=== PATIENT | male | born 1990 | race Caucasian/White ===

== ENCOUNTER → 2019-10-27 | Outpatient (CLI) | payer BC ==
[~2019-10-27] MED LIST: BACTRIM DS 8001 TA1 PO; CEPHALEXIN500 M1 PO; CLARITIN10 MG PO; CLINDAMYCIN150 MG PO; EPI EZ PEN1 MG/ML IM; HYDROCODONE BIT1 T11 PO; MEDROL DOSEPAK4 MG PO; NAPROSYN500 MG PO; NORCO 5-325 TA1 EACH PO; TOBRADEX 0.1%-0.5 ML OPH
[2019-10-27 11:14] LABS: BASO # 0.1 10*3/uL (0.0-0.1); BASO % 0.5 % (0.0-1.0); EOS # 0.2 10*3/uL (0.0-0.4); EOS % 2.1 % (1.0-4.0); HEMATOCRIT 43.9 % (42.0-52.0); HEMOGLOBIN 15.1 g/dl (14.0-18.0); LYMPH # 2.7 10*3/uL (1.3-4.4); LYMPH % 24.5 % (27.0-41.0); MEAN CELL VOLUME 95.4 fl (80.0-94.0); MEAN CORPUSCULAR HGB 32.8 pg (27.0-31.0); MEAN CORPUSCULAR HGB CONC 34.4 g/dl (33.0-37.0); MEAN PLATELET VOLUME 9.6 fl (9.6-12.3); NEUT % 63.6 % (47.0-73.0); PLATELET COUNT AUTOMATED 297 10*3/uL (130-400); RED CELL DISTRI WIDTH 12.6 % (0-14.5); RETICULOCYTE % 1.53 % (0.50-2.50); WHITE BLOOD COUNT 11.1 10*3/uL (4.8-10.8)
[2019-10-27 11:18] LABS: BILIRUBIN NEGATIVE (NEGATIVE); BLOOD NEGATIVE (NEGATIVE); CLARITY SL CLOUDY (CLEAR); COLOR YELLOW (YELLOW); GLUCOSE NEGATIVE (NEGATIVE); KETONE NEGATIVE (NEGATIVE)
[2019-10-27 11:19] LABS: LEUKO ESTERASE NEGATIVE (NEGATIVE); NITRITE NEGATIVE (NEGATIVE); UROBILINOGEN 0.2 E.U./dl (0.2-1.0)
[2019-10-27 11:24] LABS: BACTERIA TRACE; EPITHELIAL CELLS 0-2; MUCOUS 1+; WBC 0-2 wbc/hpf (0-5)
[2019-10-27 11:38] LABS: ALBUMIN 3.9 gm/dl (3.1-4.5); ALKALINE PHOSPHATASE 79 U/L (45-117); BUN 14 mg/dl (7-24); CHLORIDE 108 mmol/L (98-107); CHOLESTEROL 164 mg/dL (<200); CREATININE 0.78 mg/dL (0.70-1.30); GAMMA GLUTAMYL TRANSPEPTIDASE 28 U/L (15-85); HDL CHOLESTEROL 36 mg/dl (40-60); IRON 51 ug/dL (65-175); LDL CHOLESTEROL 91 mg/dL (9-159); POTASSIUM 3.9 mmol/L (3.5-5.1); SGOT/AST 14 IU/L (3-35); SGPT/ALT 39 U/L (12-78); SODIUM 140 mmol/L (136-145); TOTAL IRON BINDING CAPACITY 289 ug/dl (250-450); TRIGLYCERIDES 184 mg/dl (<150); VLDL CHOLESTEROL 37 mg/dL (6-40)
[2019-10-27 11:44] LABS: THYROID STIM HORMONE (HS) 0.794 uIU/ml (0.358-4.75)
[2019-10-27 12:19] LABS: VITAMIN D, 25-HYDROXY 20.9 ng/mL (30-100)
[2019-10-27 12:20] LABS: FERRITIN 219.3 ng/mL (22.0-322.0)
== END | disposition home or self-care (01) ==
LOC: LAB 10:26
PROVIDERS: Family Medicine
DX: E55.9 Vitamin D deficiency, unspecified (principal); R79.89 Other specified abnormal findings of blood chemistry; R53.83 Other fatigue

== ENCOUNTER → 2019-11-05 | Day surgery (SDC) | payer BC ==
[2019-11-05] VITALS (7 sets, daily range): BP systolic 105–122; BP diastolic 57–81
[~2019-11-05] VITALS: Ht 170.1 cm; Wt 104.3 kg
== END | disposition home or self-care (01) ==
LOC: SDC 11-04 08:45
DX: L72.3 Sebaceous cyst (principal)

== ENCOUNTER → 2021-06-10 | Outpatient (CLI) | payer BC ==
[2021-06-10 09:27] LABS: CHOLESTEROL 172 mg/dL (<200); LDL CHOLESTEROL 107 mg/dL (9-159); TRIGLYCERIDES 130 mg/dl (<150)
== END | disposition home or self-care (01) ==
LOC: LAB 08:28
PROVIDERS: ATTEND Family Medicine
DX: R53.83 Other fatigue (principal); R79.89 Other specified abnormal findings of blood chemistry; E78.5 Hyperlipidemia, unspecified

== ENCOUNTER → 2022-05-25 | Outpatient (CLI) | payer BC ==
[2022-05-25 09:57] LABS: BASO % 0.6 % (0.0-1.0); EOS # 0.2 10*3/uL (0.0-0.4); EOS % 2.9 % (1.0-4.0); HEMATOCRIT 44.1 % (42.0-52.0); LYMPH % 27.8 % (27.0-41.0); MEAN CELL VOLUME 93.8 fl (80.0-94.0); MEAN CORPUSCULAR HGB 32.1 pg (27.0-31.0); MEAN CORPUSCULAR HGB CONC 34.2 g/dl (33.0-37.0); MEAN PLATELET VOLUME 8.9 fl (9.6-12.3); MONO # 0.6 10*3/uL (0.1-1.0); NEUT # 4.2 10*3/uL (2.3-7.9); NEUT % 59.6 % (47.0-73.0); PLATELET COUNT AUTOMATED 272 10*3/uL (130-400); RED CELL DISTRI WIDTH 12.6 % (0-14.5); RETICULOCYTE % 1.29 % (0.50-2.50)
[2022-05-25 09:58] LABS: BILIRUBIN Negative (Negative); BLOOD Negative (Negative); CLARITY Clear (Clear); COLOR Yellow (Yellow); GLUCOSE Negative (Negative); KETONE Negative (Negative); LEUKO ESTERASE Negative (Negative); NITRITE Negative (Negative)
[2022-05-25 10:08] LABS: BACTERIA TRACE; EPITHELIAL CELLS 0-2; RBC 0-2 rbc/hpf (0-2); WBC 0-2 wbc/hpf (0-5)
[2022-05-25 10:14] LABS: ALKALINE PHOSPHATASE 72 U/L (45-117); BUN 16 mg/dl (7-24); CHLORIDE 111 mmol/L (98-107); CHOLESTEROL 156 mg/dL (<200); CREATININE 0.74 mg/dL (0.70-1.30); GAMMA GLUTAMYL TRANSPEPTIDASE 29 U/L (15-85); IRON 89 ug/dL (65-175); LDL CHOLESTEROL 96 mg/dL (9-159); POTASSIUM 4.2 mmol/L (3.5-5.1); SGOT/AST 16 IU/L (3-35); SGPT/ALT 30 U/L (12-78); SODIUM 140 mmol/L (136-145); TOTAL PROTEIN 7.8 gm/dL (6.4-8.2); TRIGLYCERIDES 99 mg/dl (<150)
[2022-05-25 10:20] LABS: THYROID STIM HORMONE (HS) 0.339 uIU/ml (0.358-4.75)
[2022-05-25 10:27] LABS: FERRITIN 118.2 ng/mL (22.0-322.0)
== END | disposition home or self-care (01) ==
LOC: LAB 09:33
PROVIDERS: ATTEND Family Medicine
DX: R79.89 Other specified abnormal findings of blood chemistry (principal); R53.83 Other fatigue; E78.5 Hyperlipidemia, unspecified; R74.8 Abnormal levels of other serum enzymes; E55.9 Vitamin D deficiency, unspecified

== ENCOUNTER → 2022-10-04 | Outpatient (CLI) | payer BC | END | disposition home or self-care (01) | LOC: CT 03:25 | PROVIDERS: ATTEND Family Medicine | DX: R07.9 Chest pain, unspecified (principal); R06.02 Shortness of breath ==

== ENCOUNTER → 2023-04-02 | Outpatient (CLI) | payer BC | END | disposition home or self-care (01) | LOC: LAB 15:46 | PROVIDERS: ATTEND Family Medicine | DX: R79.89 Other specified abnormal findings of blood chemistry (principal); R53.83 Other fatigue ==

== ENCOUNTER 2023-04-15 16:55 | Emergency (ER) | payer BC ==
[~2023-04-15] VITALS: Ht 167.6 cm; Wt 99.8 kg
[2023-04-15] MEDS ORDERED: EPIPEN 2-P0.3 MG/0.3 IJ (18:34)
[2023-04-15] MEDS ORDERED: PREDNISONE50 MG PO (18:34)
== END 2023-04-15 18:44 | disposition home or self-care (01) ==
LOC: ED 16:55
DX: T63.441A Toxic effect of venom of bees, accidental (unintentional), initial encounter (principal); Z98.890 Other specified postprocedural states; Y92.89 Other specified places as the place of occurrence of the external cause

== ENCOUNTER → 2023-05-21 | Outpatient (CLI) | payer BC ==
[~2023-05-21] MED LIST changes: +EPIPEN 2-P0.3 MG/0.3 IJ; +PREDNISONE50 MG PO
[2023-05-21 07:43] LABS: BASO # 0.1 10*3/uL (0.0-0.1); BASO % 0.9 % (0.0-1.0); EOS # 0.3 10*3/uL (0.0-0.4); EOS % 3.3 % (1.0-4.0); HEMATOCRIT 45.4 % (42.0-52.0); LYMPH # 3.4 10*3/uL (1.3-4.4); MEAN CELL VOLUME 92.1 fl (80.0-94.0); MEAN CORPUSCULAR HGB 32.7 pg (27.0-31.0); MEAN CORPUSCULAR HGB CONC 35.5 g/dl (33.0-37.0); MEAN PLATELET VOLUME 9.2 fl (9.6-12.3); MONO # 0.7 10*3/uL (0.1-1.0); MONO % 8.7 % (3.0-9.0); NEUT % 46.9 % (47.0-73.0); PLATELET COUNT AUTOMATED 310 10*3/uL (130-400); RED BLOOD COUNT 4.93 10*6/uL (4.50-5.90); RED CELL DISTRI WIDTH 12.5 % (0-14.5); WHITE BLOOD COUNT 8.5 10*3/uL (4.8-10.8)
[2023-05-21 08:06] LABS: ALKALINE PHOSPHATASE 81 U/L (46-116); BUN 13 mg/dl (9-23); CHLORIDE 108 mmol/L (98-107); SGPT/ALT 27 U/L (10-49)
== END | disposition home or self-care (01) ==
LOC: LAB 07:14
PROVIDERS: ATTEND Nurse Practitioner Family
DX: E29.1 Testicular hypofunction (principal)

== ENCOUNTER → 2023-11-07 | Outpatient (CLI) | payer BC ==
[2023-11-14 20:07] LABS: TESTOSTERONE FREE, (DIRECT) 6.4 pg/mL (8.7-25.1)
== END | disposition home or self-care (01) ==
LOC: LAB 07:11
PROVIDERS: ATTEND Urology
DX: N52.9 Male erectile dysfunction, unspecified (principal)

== ENCOUNTER 2024-04-13 19:09 | Emergency (ER) | payer BC ==
[~2024-04-13] VITALS: Ht 170.1 cm; Wt 102.1 kg
[2024-04-13] MEDS ORDERED: Ondansetron4 MG PO (20:01)
[2024-04-13] MEDS ORDERED: PREDNISONE10 MG PO (20:01)
[2024-04-13] MEDS ORDERED: methylPREDNISolone sod succ 125 MG VIAL IM ONE (20:05)
[2024-04-13] MEDS ORDERED: Ondansetron Hydrochloride 4 MG TAB SL ONE (20:05)
== END 2024-04-13 20:02 | disposition home or self-care (01) ==
LOC: ED 19:09
DX: R21 Rash and other nonspecific skin eruption (principal); T78.40XA Allergy, unspecified, initial encounter; R11.0 Nausea; K21.9 Gastro-esophageal reflux disease without esophagitis; Z90.49 Acquired absence of other specified parts of digestive tract; X58.XXXA Exposure to other specified factors, initial encounter

== ENCOUNTER → 2024-06-12 | Outpatient (CLI) | payer BC ==
[~2024-06-12] MED LIST changes: +Ondansetron4 MG PO; +PREDNISONE10 MG PO
[2024-06-12 09:55] LABS: BILIRUBIN Negative (Negative); BLOOD Negative (Negative); CLARITY Clear (Clear); COLOR Yellow (Yellow); GLUCOSE Negative (Negative); KETONE Negative (Negative); LEUKO ESTERASE Negative (Negative); NITRITE Negative (Negative); PH 5.5 (4.5-8.0); SPECIFIC GRAVITY 1.015 (1.001-1.030); UROBILINOGEN 0.2 E.U./dl (0.0-1.0)
[2024-06-12 09:56] LABS: BASO % 0.6 % (0.0-1.0); EOS # 0.2 10*3/uL (0.0-0.4); EOS % 2.7 % (1.0-4.0); HEMATOCRIT 42.6 % (42.0-52.0); LYMPH # 2.5 10*3/uL (1.3-4.4); LYMPH % 35.3 % (27.0-41.0); MEAN CELL VOLUME 93.2 fl (80.0-94.0); MEAN CORPUSCULAR HGB 32.4 pg (27.0-31.0); MEAN CORPUSCULAR HGB CONC 34.7 g/dl (33.0-37.0); MEAN PLATELET VOLUME 9.3 fl (9.6-12.3); MONO # 0.5 10*3/uL (0.1-1.0); MONO % 7.1 % (3.0-9.0); NEUT # 3.8 10*3/uL (2.3-7.9); PLATELET COUNT AUTOMATED 265 10*3/uL (130-400); RED BLOOD COUNT 4.57 10*6/uL (4.50-5.90); RED CELL DISTRI WIDTH 12.5 % (0-14.5); RETICULOCYTE % 1.66 % (0.50-2.50)
[2024-06-12 10:15] LABS: FREE T4 0.99 ng/dl (0.89-1.76); LIPASE 33 U/L (12-53)
[2024-06-12 10:16] LABS: ALKALINE PHOSPHATASE 63 U/L (46-116); BUN 13 mg/dl (9-23); CHLORIDE 107 mmol/L (98-107); CHOLESTEROL 170 mg/dL (<200); GAMMA GLUTAMYL TRANSPEPTIDASE 31 U/L (0-73); LDL CHOLESTEROL 95 mg/dL (9-159); POTASSIUM 3.9 mmol/L (3.4-5.1); SGPT/ALT 35 U/L (5-49); T3 UPTAKE 29.8 % (22.4-36.7); THYROXINE (T4) TOTAL 5.2 ug/dl (4.5-10.9); TOTAL PROTEIN 7.4 gm/dL (6.0-8.0); TRIGLYCERIDES 177 mg/dl (<150)
[2024-06-12 11:10] LABS: VITAMIN D, 25-HYDROXY 45.2 ng/mL (30-100)
[2024-06-12 11:17] LABS: RBC 0-2 rbc/hpf (0-2)
[2024-06-12 11:18] LABS: EPITHELIAL CELLS 0-2
[2024-06-13 15:07] LABS: t-TRANSGLUTAMINASE (tTG) IGA <2 U/mL (0-3); t-TRANSGLUTAMINASE (tTG) IgG <2 U/mL (0-5)
== END | disposition home or self-care (01) ==
LOC: LAB 08:47
PROVIDERS: Family Medicine; ATTEND Nurse Practitioner Family
DX: R06.02 Shortness of breath (principal); R10.9 Unspecified abdominal pain; R53.83 Other fatigue; R79.89 Other specified abnormal findings of blood chemistry; E78.5 Hyperlipidemia, unspecified; R74.8 Abnormal levels of other serum enzymes; E55.9 Vitamin D deficiency, unspecified

== ENCOUNTER → 2024-08-28 | Outpatient (CLI) | payer BC | END | disposition home or self-care (01) | LOC: LAB 09:28 | PROVIDERS: ATTEND Nurse Practitioner Family | DX: K29.70 Gastritis, unspecified, without bleeding (principal); B96.81 Helicobacter pylori [H. pylori] as the cause of diseases classified elsewhere ==

== ENCOUNTER → 2024-12-11 | Outpatient (CLI) | payer BC | END | disposition home or self-care (01) | LOC: LAB 09:46 | PROVIDERS: ATTEND Urology | DX: D40.0 Neoplasm of uncertain behavior of prostate (principal); R53.83 Other fatigue ==

== ENCOUNTER → 2025-06-12 | Outpatient (CLI) | payer BC ==
[2025-06-12 07:55] LABS: LDL CHOLESTEROL 83 mg/dL (9-159)
== END | disposition home or self-care (01) ==
LOC: LAB 07:18
PROVIDERS: ATTEND Family Medicine
DX: E78.5 Hyperlipidemia, unspecified (principal); R79.89 Other specified abnormal findings of blood chemistry; R53.83 Other fatigue